=== PATIENT | male | born 1995 | race Two or more races ===

== ENCOUNTER 2021-08-30 10:30 | Emergency (ER) | payer MEDICAID ==
[~2021-08-30] VITALS: Ht 175.3 cm; Wt 83.9 kg
[2021-08-30] MEDS ORDERED: IBUPROFEN 800 MG TAB PO ONE (11:15)
[2021-08-30] MEDS ORDERED: IBUP800T27 PO (11:16)
[2021-08-30 11:24] VITALS: BP 130/93
== END 2021-08-30 11:40 | disposition home or self-care (01) ==
LOC: ER 10:30
DX: G43.909 Migraine, unspecified, not intractable, without status migrainosus (principal)

== ENCOUNTER 2021-09-12 11:05 | Emergency (ER) | payer MEDICAID ==
[~2021-09-12] VITALS: Ht 175.3 cm; Wt 85.3 kg
[~2021-09-12 11:05] MED LIST: IBUP800T27 PO
[2021-09-12 11:09] VITALS: BP 145/100
[2021-09-12] MEDS ORDERED: EPINEPHrine HCL 1 MG/1 ML AMP SC ONE (12:15)
[2021-09-12] MEDS ORDERED: methylPREDNISolone SOD SUCC 125 MG/2 ML VL IM ONE (12:15)
[2021-09-12] MEDS ORDERED: HYDR25CA PO (12:20)
[2021-09-12] MEDS ORDERED: PRED20TA2 PO (12:20)
== END 2021-09-12 13:02 | disposition home or self-care (01) ==
LOC: ER 11:05
DX: T78.40XA Allergy, unspecified, initial encounter (principal); X58.XXXA Exposure to other specified factors, initial encounter
CPT/HCPCS: 96372; 99284; J0171; J2930

== ENCOUNTER → 2021-10-30 | Emergency (ER) | payer MEDICAID ==
[~2021-10-30] MED LIST changes: +HYDR25CA PO; +PRED20TA2 PO
== END | disposition left against medical advice (07) ==
LOC: ER 11:31
DX: R50.9 Fever, unspecified (principal); R51.9 Headache, unspecified; Z53.21 Procedure and treatment not carried out due to patient leaving prior to being seen by health care provider

== ENCOUNTER 2023-07-04 03:35 | Emergency (ER) | payer MEDICAID ==
[~2023-07-04] VITALS: Ht 175.3 cm; Wt 86.0 kg
[~2023-07-04 03:35] MED LIST changes: +IBUP-1456 PO; -IBUP800T27 PO
[2023-07-04 04:19] LABS: Urine WBC None Seen /hpf (0 - 3)
[2023-07-04 04:24] LABS: Basophils # (auto) 0 10 ^3/uL (0-0.2); Basophils % (auto) 0.5 % (0.0-2.0); Eosinophils # (auto) 0.3 10 ^3/uL (0-0.8); Eosinophils % (auto) 3.5 % (0.0-7.0); Hematocrit 49.8 % (41.0-53.0); Hemoglobin 17.4 g/dL (13.5-17.5); Lymphocytes # (auto) 2.3 10 ^3/uL (0.4-5.4); Lymphocytes % (auto) 30.2 % (10.0-50.0); Mean Corpuscular Hemoglobin 32.4 pg (28.0-32.0); Mean Corpuscular Hgb Conc. 34.9 g/dL (32.0-36.0); Mean Corpuscular Volume 92.8 fL (80.0-100.0); Monocytes # (auto) 0.6 10 ^3/uL (0-1.3); Monocytes % (auto) 7.9 % (0.0-12.0); Neutrophils # (auto) 4.4 10 ^3/uL (1.6-8.6); Neutrophils % (auto) 57.9 % (37.0-80.0); Nucleated Red Blood Cells % 0.7 %; Red Blood Cells 5.36 10^6/uL (4.5-5.90); White Blood Cell 7.5 10^3/uL (4.4-10.8)
[2023-07-04 04:39] LABS: Amphetamine Screen, Urine Neg (NEGATIVE); Barbiturate Scree,Urine Neg (NEGATIVE); Benzodiazephine Screen, Urine Neg (NEGATIVE); Cocaine Screen, Urine Neg (NEGATIVE)
[2023-07-04 04:40] LABS: Cannabinoid Screen, Urine Neg (NEGATIVE); Opiate Scree,Urine Neg (NEGATIVE); Phencyclidine Screen, Urine Neg (NEGATIVE)
[2023-07-04 04:41] LABS: Alanine Aminotransferase 80 U/L (7-40); Albumin 4.9 g/dL (3.2-4.8); Alkaline Phosphatase 87 U/L (46-116); Anion Gap 8 (5-15); Aspartate Aminotransferase 41 U/L (13-40); BUN/Creatinine Ratio 10.5 (10.0-20.0); Blood Urea Nitrogen 9 mg/dL (9-23); Calcium 9.3 mg/dL (8.5-10.1); Carbon Dioxide 25 mmol/L (20-30); Chloride 108 mmol/L (98-107); Glucose 95 mg/dL (74-106); Sodium 141 mmol/L (136-145)
[2023-07-04 04:42] LABS: Bilirubin, Total 0.6 mg/dL (0.2-1.0); Total Protein 7.4 g/dL (5.7-8.2)
[2023-07-04 04:50] LABS: Urine Bacteria NONE SEEN /hpf (None Seen); Urine Blood TRACE /uL (Negative); Urine Clarity Clear (Clear); Urine Color Colorless (Yellow); Urine Protein, UAD Negative (Negative); Urine Urobilinogen Normal (Negative)
[2023-07-04 04:52] LABS: INR 0.96 (0.9-1.15); Partial Thromboplastin Time 30.2 SEC (24.5-34.5); Prothrombin Time 10.1 sec (9.3-11.8)
[2023-07-04 04:54] LABS: Lipase 43 U/L (12-53)
[2023-07-04 05:11] LABS: Blood Alcohol 71.6 mg/dL (<10)
[2023-07-04 06:40] VITALS: BP 137/91; PULSE 80; RESP 16; TEMP 98.3; O2SAT 97
[2023-07-04] MEDS: SODIUM CHLORIDE 0.9% 1,000 ML IVB ONE (06:53)
[2023-07-04] MEDS ORDERED: SODIUM CHLORIDE 0.9% 1,000 ML IV ONE (13:00)
[2023-07-04] MEDS ORDERED: FOLIC ACID 1 MG, MAGNESIUM SULF SDV 50% 8 MEQ, MULTIPLE VITAMIN 10 ML, THIAMINE INJ 100... INJ SCH (18:00)
== END 2023-07-04 13:36 | disposition left against medical advice (07) ==
LOC: ER 03:35
DX: R55 Syncope and collapse (principal); N23 Unspecified renal colic; Z87.442 Personal history of urinary calculi; Z79.899 Other long term (current) drug therapy
CPT/HCPCS: 36415; 70450; 71045; 74176; 80053; 80307; 80320; 81001; 83690; 84484; 85025; 85610; 85730; 93005; 96360; 99285; J7030

== ENCOUNTER 2024-09-12 18:00 | Emergency (ER) | payer SELFPAY ==
[~2024-09-12] VITALS: Ht 175.3 cm; Wt 96.0 kg
--- NOTE | 2024-09-12 19:20 | ED.PDOC ---
Musculoskeletal HPI Comments 29 year old male, presents to the ED with no prior Hx associated to the c/c of Left shoulder pain. Pt states that the pain started 1x week ago, and he noticed the pain during the drive home from work. Pt notes that the pain radiates down his left arm to his hand, and notes that his hand feels numb, hot, and tingly. Pt also notes of drinking 4x beers a day. Pt denies any trauma or PMHx or sick contact at this time. Chief Complaint: Upper Extremity Time Seen by MD: 19:15 Primary Care Provider: DENIES Reviewed Notes: Nurses Notes, Medications, Allergies Allergies: Coded Allergies: NO KNOWN ALLERGIES (Unverified , 06/18/13) Home Meds Active Scripts Hydroxyzine Pamoate (Vistaril) 25 Mg Cap, 1 CAP PO TID, #30 CAP Prov:SEVERINO RIOS 09/12/21 Prednisone (Prednisone) 20 Mg Tab, 20 MG PO DAILY, #18 MG Prov:SEVERINO RIOS 09/12/21 Ibuprofen (Ibuprofen) 800 Mg Tab, 1 TAB PO TID PRN, #30 TAB 0 Refills Prov:GABRIELA LOWE 08/30/21 Information Source: Patient Mode of Arrival: Ambulatory Location: Left Extremity Location: Shoulder Timing: Days Prehospital treatment: None Severity: Moderate Able to Move Extremity: Yes Bear Weight: Fully Pain: Moderate Hand Dominance: Left Mechanism: Spontaneous Circumstances: Unknown Onset of Symptoms: Spontaneous Symptoms: Pain DVT Risk Factors: NONE Last Tetanus: Unknown Associated signs and symptoms: Shoulder pain Past Medical History PAST MEDICAL HISTORY: Kidney Stones, Seizures Surgical History: Denies all surgeries Family History Family History: Unknown Social History Smoker: Non-Smoker Alcohol: Occasionally Drugs: Denies Drug Use Lives In: Home Constitutional: denies: chills, diaphoresis, fatigue, fever, malaise, sweats, weakness, others EENTM: denies: blurred vision, double vision, ear bleeding, ear discharge, ear drainage, ear pain, ear ringing, eye pain, eye redness, hearing loss, mouth pain, mouth swelling, nasal discharge, nose bleeding, nose congestion, nose pain, photophobia, tearing, throat pain, throat swelling, voice changes, others Respiratory: denies: cough, hemoptysis, orthopnea, SOB at rest, shortness of breath, SOB with excertion, stridor, wheezing, others Cardiovascular: denies: chest pain, dizzy spells, diaphoresis, Dyspnea on exertion, edema, irregular heart beat, left arm pain, lightheadedness, palpitations, PND, syncope, others Gastrointestinal: denies: abdomen distended, abdominal pain, blood streaked bowels, constipated, diarrhea, dysphagia, difficulty swallowing, hematemesis, melena, nausea, poor appetite, poor fluid intake, rectal bleeding, rectal pain, vomiting, others Genitourinary: denies: burning, dysuria, flank pain, frequency, hematuria, incontinence, penile discharge, penile sore, pain, testicle pain, testicle swelling, urgency, others Neurological: denies: dizziness, fainting, headache, left sided numbness, left sided weakness, numbness, paresthesia, pre-existing deficit, right sided numbness, right sided weakness, seizure, speech problems, tingling, tremors, weakness, others Musculoskeletal: denies: back pain, gout, joint pain, joint swelling, muscle pain, muscle stiffness, neck pain, others Integumetry: denies: bruises, change in color, change in hair/nails, dryness, laceration, lesions, lumps, rash, wounds, others Allergic/Immunocompromised: denies: Difficulty Healing, Frequent Infections, Hives, Itching, others Hematologic/Lymphatic: denies: anemia, blood clots, easy bleeding, easy bruising, swollen glands, others Endocrine: denies: excessive hunger, excessive sweating, excessive thirst, excessive urination, flushing, intolerance to cold, intolerance to heat, unexplained weight gain, unexplained weight loss, others Psychiatric: denies: anxiety, bipolar disorder, depression, hopeless, panic disorder, schizophrenia, sleepless, suicidal, others All Other Systems: Reviewed and Negative Physical Exam General Appearance: Moderate Distress HEENT: Normal ENT Inspection, Pharynx Normal, TMs Normal Neck: Full Range of Motion, Non-Tender, Normal, Normal Inspection Respiratory: Chest Non-Tender, Lungs Clear, No Accessory Muscle Use, No Respiratory Distress, Normal Breath Sounds Cardiovascular: No Edema, No JVD, No Murmur, No Gallop, Normal Peripheral Pulses, Regular Rate/Rhythm Breast Exam: Deferred Gastrointestinal: No Organomegaly, Non Tender, No Pulsatile Mass, Normal Bowel Sounds, Soft Genitalia: Deferred Pelvic: Deferred Rectal: Deferred Extremities: No calf tenderness, Normal capillary refill, Normal inspection, Normal range of motion, Non-tender, No pedal edema, Other (Left shoulder tenderness) Musculoskeletal : Apperance: Normal 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 Was a procedure done?: No Differential Diagnosis EXT Differential Diagnosis: Cellulitis, Compartment Syndrome, Fracture, Sprain, Dislocation, Laceration, Gout, DJD, Contusion, Strain, Septic, Neurovascular injury, Arthritis, Bursitis, Other X-Ray, Labs, Meds, VS Vital Signs Date Time Temp Pulse Resp B/P (MAP) Pulse Ox O2 Delivery O2 Flow Rate FiO2 09/12/24 21:02 98.6 96 20 148/89 (108) 98 98.6 09/12/24 21:02 96 20 98 Room Air 09/12/24 18:37 98.4 112 22 151/100 (117) 96 98.4 Lab Test 09/12/24 19:28 Range/Units White Blood Count 7.7 4.4-10.8 10^3/uL Red Blood Count 5.38 4.5-5.90 10^6/uL Hemoglobin 17.2 13.5-17.5 g/dL Hematocrit 49.6 41.0-53.0 % Mean Corpuscular Volume 92.3 80.0-100.0 fL Mean Corpuscular Hemoglobin 32.0 28.0-32.0 pg Mean Corpuscular Hemoglobin Concent 34.6 32.0-36.0 g/dL Red Cell Distribution Width 12.3 11.8-14.3 % Platelet Count 297 140-450 10^3/uL Mean Platelet Volume 7.1 6.9-10.8 fL Neutrophils (%) (Auto) 71.1 37.0-80.0 % Lymphocytes (%) (Auto) 15.0 10.0-50.0 % Monocytes (%) (Auto) 9.9 0.0-12.0 % Eosinophils (%) (Auto) 3.2 0.0-7.0 % Basophils (%) (Auto) 0.8 0.0-2.0 % Neutrophils # (Auto) 5.5 1.6-8.6 10 ^3/uL Lymphocytes # (Auto) 1.2 0.4-5.4 10 ^3/uL Monocytes # (Auto) 0.8 0-1.3 10 ^3/uL Eosinophils # (Auto) 0.2 0-0.8 10 ^3/uL Basophils # (Auto) 0.1 0-0.2 10 ^3/uL Nucleated Red Blood Cells 0.1 % Sodium Level 141 136-145 mmol/L Potassium Level 3.8 3.5-5.1 mmol/L Chloride Level 105 98-107 mmol/L Carbon Dioxide Level 27 20-31 mmol/L Anion Gap 9 5-15 Blood Urea Nitrogen 13 9-23 mg/dL Creatinine 1.23 0.700-1.30 mg/dL Glomerular Filtration Rate Calc 82 >90 mL/min BUN/Creatinine Ratio 10.6 10.0-20.0 Serum Glucose 103 74-106 mg/dL Calcium Level 9.6 8.7-10.4 mg/dL Magnesium Level 2.0 1.6-2.6 mg/dL Total Bilirubin 1.2 H 0.2-1.0 mg/dL Aspartate Amino Transferase (AST) 22 13-40 U/L Alanine Aminotransferase (ALT) 44 H 7-40 U/L Alkaline Phosphatase 93 46-116 U/L Troponin I High Sensitivity < 3 L </=54 ng/L Total Protein 7.7 5.7-8.2 g/dL Albumin 5.2 H 3.2-4.8 g/dL PATIENT: NENA CUBA ACCT: [id number] UNIT: [id number] : 1995 LOC: ER ROOM / BED: / AGE / SEX: 29 / M ADM STATUS: REG ER SERVICE [id number] ORDERING PHYSICIAN: ILEANA JARAMILLO MD PROCEDURE(s): LSHD2 - L SHOULDER 2+ VIEW XRAY REASON: left shoulder pain no trauma ORDER NUMBER(s): [id number], ACCESSION NUMBER(s): [id number] CLINICAL INDICATION: left shoulder pain no trauma TECHNIQUE: XY L SHOULDER 2+ VIEW XRAY Comparison: None FINDINGS: No osseous or joint abnormality identified with no fracture or dislocation. Joint spaces are normal. Soft tissues appear unremarkable. IMPRESSION: No abnormality demonstrated. Time of 1ST Reevaluation: 19:46 Reevaluation 1ST: Unchanged Patient Education/Counseling: Diagnosis, Treatment Family Education/Counseling: No Family Present Departure 1 Departure Time of Disposition: 21:40 Impression: Primary Impression: Left shoulder tendonitis Additional Impression: Paresthesia Disposition: 01 HOME / SELF CARE / HOMELESS Condition: Stable Discharged With: Self Critical Care Note Critical Care Time?: No Stability Stability form required: No I personally scribed for ILEANA JARAMILLO MD ([email or web address]) on 09/12/24 at 19:20. Electronically submitted by Chip Franco ([email or web address]). I personally scribed for ILEANA JARAMILLO MD ([email or web address]) on 09/12/24 at 20:25. Electronically submitted by Chip Franco ([email or web address]). ILEANA JARAMILLO MD September 12, 2024 19:20
--- NOTE | 2024-09-12 19:30 | DVH ---
CLINICAL INDICATION: left shoulder pain no trauma TECHNIQUE: XY L SHOULDER 2+ VIEW XRAY Comparison: None FINDINGS: No osseous or joint abnormality identified with no fracture or dislocation. Joint spaces are normal. Soft tissues appear unremarkable. IMPRESSION: No abnormality demonstrated.
[2024-09-12 19:48] LABS: Basophils # (auto) 0.1 10 ^3/uL (0-0.2); Basophils % (auto) 0.8 % (0.0-2.0); Eosinophils # (auto) 0.2 10 ^3/uL (0-0.8); Eosinophils % (auto) 3.2 % (0.0-7.0); Hematocrit 49.6 % (41.0-53.0); Hemoglobin 17.2 g/dL (13.5-17.5); Lymphocytes # (auto) 1.2 10 ^3/uL (0.4-5.4); Mean Corpuscular Hgb Conc. 34.6 g/dL (32.0-36.0); Mean Corpuscular Volume 92.3 fL (80.0-100.0); Monocytes # (auto) 0.8 10 ^3/uL (0-1.3); Monocytes % (auto) 9.9 % (0.0-12.0); Neutrophils # (auto) 5.5 10 ^3/uL (1.6-8.6); Neutrophils % (auto) 71.1 % (37.0-80.0); Nucleated Red Blood Cells % 0.1 %; Platelet Count (auto) 297 10^3/uL (140-450); Red Blood Cells 5.38 10^6/uL (4.5-5.90); Red Cell Distribution Width 12.3 % (11.8-14.3); White Blood Cell 7.7 10^3/uL (4.4-10.8)
[2024-09-12 20:10] LABS: Alkaline Phosphatase 93 U/L (46-116); Anion Gap 9 (5-15); Aspartate Aminotransferase 22 U/L (13-40); BUN/Creatinine Ratio 10.6 (10.0-20.0); Blood Urea Nitrogen 13 mg/dL (9-23); Calcium 9.6 mg/dL (8.7-10.4); Carbon Dioxide 27 mmol/L (20-31); Chloride 105 mmol/L (98-107); Glucose 103 mg/dL (74-106); Potassium 3.8 mmol/L (3.5-5.1); Sodium 141 mmol/L (136-145); Total Protein 7.7 g/dL (5.7-8.2)
[2024-09-12 20:11] LABS: Bilirubin, Total 1.2 mg/dL (0.2-1.0)
[2024-09-12 20:13] LABS: Alanine Aminotransferase 44 U/L (7-40); Albumin 5.2 g/dL (3.2-4.8)
[2024-09-12 21:02] VITALS: BP 148/89; PULSE 96; RESP 20; TEMP 98.6; O2SAT 98
== END 2024-09-12 21:05 | disposition home or self-care (01) ==
LOC: ER 18:00
DX: M77.8 Other enthesopathies, not elsewhere classified (principal); R20.2 Paresthesia of skin; Z87.442 Personal history of urinary calculi; Z79.52 Long term (current) use of systemic steroids; Z79.899 Other long term (current) drug therapy
CPT/HCPCS: 36415; 73030; 80053; 83735; 84484; 85025

== ENCOUNTER 2025-01-23 21:49 | Emergency (ER) | payer SELFPAY ==
[~2025-01-23] VITALS: Ht 175.3 cm; Wt 89.0 kg
[2025-01-23 21:50] VITALS: BP 155/96; PULSE 93; RESP 18; TEMP 97.6; O2SAT 97
[2025-01-23] MEDS ORDERED: ALBUTEROL SULF 2.5 MG/0.5ML(0.5%) NEB SOLN NEB ONE (22:15)
[2025-01-23] MEDS ORDERED: IPRATROPIUM BROM 0.5 MG/2.5ML INH SOL NEB ONE (22:15)
[2025-01-24] MEDS ORDERED: ALBUAER3 IN (02:35)
[2025-01-24] MEDS ORDERED: AZIT-43 PO (02:35)
[2025-01-24] MEDS ORDERED: PRED20TA2 PO (02:35)
== END 2025-01-23 23:17 | disposition left against medical advice (07) ==
LOC: ER 21:49
DX: R05.9 Cough, unspecified (principal); R09.81 Nasal congestion; R06.2 Wheezing; Z53.21 Procedure and treatment not carried out due to patient leaving prior to being seen by health care provider

== ENCOUNTER 2025-01-24 01:01 | Emergency (ER) | payer MEDICAID ==
[~2025-01-24] VITALS: Ht 175.3 cm; Wt 94.9 kg
[2025-01-24] MEDS: IPRATROPIUM BROM 0.5 MG/2.5ML INH SOL NEB ONE (01:41)
[2025-01-24] MEDS: ALBUTEROL SULF 2.5 MG/0.5ML(0.5%) NEB SOLN NEB ONE (01:42)
[2025-01-24 02:30] VITALS: O2SAT 98
[2025-01-24 02:35] VITALS: TEMP 98
[2025-01-24] MEDS ORDERED: ALBUAER3 IN (02:35)
[2025-01-24] MEDS ORDERED: PRED20TA2 PO (02:35)
[2025-01-24] MEDS ORDERED: AZIT-43 PO (02:35)
--- NOTE | 2025-01-24 02:35 | ED.PDOC ---
SOB-HPI HPI Comments 29 year old male presents to ER with complaints of cough x 1 month. Patient reports he's been experiencing productive cough with white phlegm and intermittent episodes of wheezing/shortness of breath x 1 month. Denies use of medications for current symptoms and presents to ER afebrile, ambulatory, with steady gait, in no distress with pulse ox 98% on RA. Denies fever, body aches, night sweats, fatigue, hemoptysis, chest pain, n/v or any further symptoms/ complaints Chief Complaint: Cough Time Seen by MD: 01:08 Primary Care Provider: UNKNOWN Reviewed notes: Nurses Notes, Medications, Allergies Information Source: Patient Mode of Arrival: Ambulatory Past Medical History PAST MEDICAL HISTORY: Kidney Stones, Seizures Surgical History: Denies all surgeries Family History Family History: Unknown Social History Smoker: Non-Smoker Alcohol: Occasionally Drugs: Denies Drug Use Lives In: Home Constitutional: denies: chills, diaphoresis, fatigue, fever, malaise, sweats, weakness, others EENTM: denies: blurred vision, double vision, ear bleeding, ear discharge, ear drainage, ear pain, ear ringing, eye pain, eye redness, hearing loss, mouth pain, mouth swelling, nasal discharge, nose bleeding, nose congestion, nose pain, photophobia, tearing, throat pain, throat swelling, voice changes, others Respiratory: reports: others (As stated in HPI) Cardiovascular: denies: chest pain, dizzy spells, diaphoresis, Dyspnea on exertion, edema, irregular heart beat, left arm pain, lightheadedness, palpitations, PND, syncope, others Gastrointestinal: denies: abdomen distended, abdominal pain, blood streaked bowels, constipated, diarrhea, dysphagia, difficulty swallowing, hematemesis, melena, nausea, poor appetite, poor fluid intake, rectal bleeding, rectal pain, vomiting, others Genitourinary: denies: burning, dysuria, flank pain, frequency, hematuria, incontinence, penile discharge, penile sore, pain, testicle pain, testicle swelling, urgency, others Neurological: denies: dizziness, fainting, headache, left sided numbness, left sided weakness, numbness, paresthesia, pre-existing deficit, right sided numbness, right sided weakness, seizure, speech problems, tingling, tremors, weakness, others Musculoskeletal: denies: back pain, gout, joint pain, joint swelling, muscle pain, muscle stiffness, neck pain, others Integumetry: denies: bruises, change in color, change in hair/nails, dryness, laceration, lesions, lumps, rash, wounds, others Allergic/Immunocompromised: denies: Difficulty Healing, Frequent Infections, Hives, Itching, others Hematologic/Lymphatic: denies: anemia, blood clots, easy bleeding, easy bruising, swollen glands, others Endocrine: denies: excessive hunger, excessive sweating, excessive thirst, excessive urination, flushing, intolerance to cold, intolerance to heat, unexplained weight gain, unexplained weight loss, others Psychiatric: denies: anxiety, bipolar disorder, depression, hopeless, panic disorder, schizophrenia, sleepless, suicidal, others Physical Exam General Appearance: No Apparent Distress HEENT: Normal ENT Inspection, PERRL/EOMI, Pharynx Normal, TMs Normal Neck: Full Range of Motion, Non-Tender, Normal Respiratory: Chest Non-Tender, Decreased Breath Sounds (Slightly noted to bilateral upper lung barron), Lungs Clear, No Accessory Muscle Use, No Respiratory Distress Cardiovascular: No Murmur, No Gallop, Regular Rate/Rhythm Breast Exam: Deferred Gastrointestinal: NOT DONE Genitalia: Deferred Pelvic: Deferred Rectal: Deferred Extremities: Normal capillary refill, Normal range of motion Neurologic: Alert, No Motor Deficits, Normal Affect, Normal Mood, No Sensory Deficits Cerebellar Function: Normal Reflexes: Normal Skin: Dry, Normal Color, Warm Peripheral Pulses: 2+ Radial (R), 2+ Radial (L), 2+ Brachial (R), 2+ Brachial (L) Lymphatic: No Adenopathy Was a procedure done? Was a procedure done?: No Sedation Sedation?: No Differential Dx Differential Diagnosis: Pneumonia, Pulmonary Embolism, Respiratory Distress X-Ray, Labs, Meds, VS Vital Signs Date Time Temp Pulse Resp B/P (MAP) Pulse Ox O2 Delivery O2 Flow Rate FiO2 01/24/25 02:35 98.0 80 16 98 98.0 01/24/25 02:30 98 Room Air* 0 01/24/25 01:42 18 99 Room Air* 0 21 01/24/25 01:42 99 Room Air* 0 01/24/25 01:04 98.0 80 16 156/108 98 98.0 Current Medications Medications (Trade) Dose Ordered Sig/Edmund Route Start Time Stop Time Status Last Admin Albuterol (Ventolin Medneb) 5 mg ONCE ONCE NEB 01/24/25 01:15 01/24/25 01:16 DC 01/24/25 01:42 Ipratropium [place] (Atrovent Medneb) 0.5 mg ONCE ONCE NEB 01/24/25 01:15 01/24/25 01:16 DC 01/24/25 01:41 PATIENT: NENA CUBA RACCT: [id number]: [id number] : 1995 LOC: ER ROOM / BED: / AGE / SEX: 29 / M ADM STATUS: REG ER SERVICE 1 ORDERING PHYSICIAN: GABRIELA LOWE PROCEDURE(s): CXR2 - CHEST TWO VIEWS ROUTINE REASON: cough ORDER NUMBER(s): [id number], ACCESSION NUMBER(s): [id number] CHEST RADIOGRAPH Indication: cough Technique: Frontal and lateral view of the chest was obtained Comparison: XY CHEST PORTABLE on DOS: 07/04/23 FINDINGS: Lines and Tubes: None Lungs: Clear Pleura: No effusion. No pneumothorax. Cardiomediastinal contours: Unremarkable Bones: Unremarkable IMPRESSION: 1. No evidence of acute disease. ATED BY: MAIKOL DIALLO MD DICTATED DATE/TIME: 01/24/25314 SIGNED BY: MAIKOL DIALLO MD SIGNED DATE/TIME: 01/24/25314 CC: Duo nebulizer treatment ordered Chest x-ray reviewed Patient had improvement in symptoms, afebrile, well appearing and in no distress prior to discharge Advised to drink plenty of fluids Advised to follow up with PCP in 1-2 days Patient verbalized understanding and agreeable with current plan of care Advised to return to ER immediately if symptoms worsen Images Reviewed?: Images reviewed and evaluated by me Time of 1ST Reevaluation: 02:12 Reevaluation 1ST: N/A Patient Education/Counseling: Diagnosis, Treatment, Prognosis, Need For Follow Up Family Education/Counseling: No Family Present SEPSIS Sepsis Screen Date sepsis recognized/suspect: Jan 24, 2025 Time Sepsis recognized/suspect: 0106 Recent Procedure: No On Antibiotic Therapy: No Respiratory Rate >20: No Heart Rate >90: No Temp<36 C (96.8 F) or >38.3 C: No SBP <90 or MAP <65 mmHG: No New Acute Mental Status Change: No Is the patient on CPAP, BIPAP,: No Physician Orders Chest Two Views Routine (01/24/25 02:32) Vital Signs Date Time Temp Pulse Resp B/P (MAP) Pulse Ox O2 Delivery O2 Flow Rate FiO2 01/24/25 02:35 98.0 80 16 98 98.0 01/24/25 02:30 98 Room Air* 0 21 01/24/25 01:42 18 99 Room Air* 0 21 01/24/25 01:42 99 Room Air* 0 21 01/24/25 01:04 98.0 80 16 156/108 98 98.0 Medications Medications Dose Ordered Sig/Edmund Route Start Time Stop Time Status Last Admin Dose Admin Albuterol 5 mg ONCE ONCE NEB 01/24/25 01:15 01/24/25 01:16 DC 01/24/25 01:42 Ipratropium [place] 0.5 mg ONCE ONCE NEB 01/24/25 01:15 01/24/25 01:16 DC 01/24/25 01:41 Departure 1 Departure Time of Disposition: 02:32 Impression: Primary Impression: Acute bronchitis Qualified Codes: J20.9 - Acute bronchitis, unspecified Disposition: 01 HOME / SELF CARE / HOMELESS Condition: Stable e-Prescriptions Albuterol Sulfate (VENTOLIN MDI) 90 Mcg Ih 2 PUFF IN Q6HPRN, #1 INH 0 Refills Prov: GABRIELA LOWE 01/24/25 Prednisone (Prednisone) 20 Mg Tab 20 MG PO BID for 5 Days, #10 TAB 0 Refills Prov: GABRIELA LOWE 01/24/25 Azithromycin (Azithromycin) 250 Mg Tab 250 MG PO DAILY MDD 500 for 5 Days, #6 TAB 0 Refills 2 TABLETS ORALLY ON DAY ONE, THEN 1 TABLET ORALLY DAILY FOR 4 DAYS Prov: GABRIELA LOWE 01/24/25 Discharged With: Self Critical Care Note Critical Care Time?: No Stability Stability form required: No Heart Score Heart Score: Heart Score Response (Comments) Value History N/A 0 EKG N/A 0 Age N/A 0 Risk Factors N/A 0 Troponin N/A 0 Total 0 GABRIELA LOWE Jan 24, 2025 02:35
--- NOTE | 2025-01-24 03:18 | DVH ---
CHEST RADIOGRAPH Indication: cough Technique: Frontal and lateral view of the chest was obtained Comparison: XY CHEST PORTABLE on DOS: 07/04/23 FINDINGS: Lines and Tubes: None Lungs: Clear Pleura: No effusion. No pneumothorax. Cardiomediastinal contours: Unremarkable Bones: Unremarkable IMPRESSION: 1. No evidence of acute disease.
[2025-01-24 03:25] VITALS: BP 152/100; PULSE 79; RESP 20; O2SAT 98
== END 2025-01-24 03:33 | disposition home or self-care (01) ==
LOC: ER 01:01
DX: J20.9 Acute bronchitis, unspecified (principal); F10.90 Alcohol use, unspecified, uncomplicated; Z87.442 Personal history of urinary calculi; Y90.9 Presence of alcohol in blood, level not specified
CPT/HCPCS: 71046; 94640